=== PATIENT | female | born 2005 | race Asian ===

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

== ENCOUNTER 2023-07-11 09:41 | Outpatient (REF) | payer BC, SELFPAY ==
[2023-07-11 09:58] LABS: MANUAL DIFF FLAG NO
[2023-07-11 10:15] LABS: Basophils Percent Auto 0.6 % (0-2); Eosinophils Percent Auto 0.5 % (0-4); Hemoglobin 12.9 g/dl (12.0-16.0); Imm Gran Abs Auto 0.02 X10*3/uL (0.00-0.03); Imm Gran Pct Auto 0.3 % (0.0-0.4); Lymphocytes Absolute Auto 1.8 X10*3/uL (1.2-4.9); Lymphocytes Percent Auto 28.3 % (20-40); Mean Corpuscular HGB Conc 33.1 g/dl (31.0-35.0); Mean Corpuscular Hemoglobin 31.1 pg (27.0-33.0); Mean Platelet Volume 10.4 fL (9.4-12.3); Monocytes Absolute Auto 0.3 X10*3/uL (0.1-1.2); Monocytes Percent Auto 5.4 % (2-11); Neutrophils Absolute Auto 4.1 x10*3/uL (2.0-8.3); Neutrophils Percent Auto 64.9 % (45-73); Platelet Count 257 X10*3/uL (160-400); Red Blood Count 4.15 X10*6/uL (4.20-5.50); Red Cell Distribution Width 12.4 % (11.0-16.0); White Blood Count 6.3 X10*3/uL (4.8-10.8)
[2023-07-11 10:52] LABS: Alanine Aminotransferase 9 U/L (0-31); Albumin Level 4.5 g/dL (3.5-5.0); Alkaline Phosphatase 52 U/L (39-117); Aspartate Amino Transferase 14 U/L (5-31); Bilirubin Direct 0.3 mg/dL (0.0-0.5); Bilirubin Total 0.7 mg/dL (0.0-1.0); Total Protein 7.8 g/dL (6.5-8.0)
[2023-07-11 11:11] LABS: Free T4 (Free Thyroxine) 0.91 ng/dL (0.71-1.85); Thyroid Stimulating Hormone 1.21 uIU/mL (0.32-4.0)
[2023-07-12 06:23] LABS: Triiodothyronine T3 Free 3.1 pg/mL (3.0-4.7)
== END 2023-07-11 09:42 | disposition home or self-care (01) ==
LOC: HO.LAB 09:41
PROVIDERS: Visit Provider Internal Medicine Endocrinology, Diabetes & Metabolism
DX: E05.90 Thyrotoxicosis, unspecified without thyrotoxic crisis or storm (principal)
CPT/HCPCS: 36415; 80076; 84439; 84443; 84481; 85025

== ENCOUNTER 2023-07-13 10:13 | Outpatient (AMB) | payer BC, SELFPAY ==
--- NOTE | 2023-07-13 10:16 | MHC.OFFVIS ---
Intake Vital Signs 07/13/23 10:18 Height 5 ft 2.99 in Weight 129 lb 13.636 oz BMI 23.0 BP 98/64 Blood Pressure Location Lt brachial Position Sitting Pulse 79 Pulse Source Pulse Oximeter Intake Visit Reasons: f/u hyperthyroidism-lvm Intake Note: Patient present today for Hyperthyroidism follow up visit. Senior [employer] Required: No Accompanied by: Self / Same As Patient Allergies No Known Allergies Allergy (Verified 07/13/23 10:22) HPI HPI Comments History of Present Illness Details 16 YO F with PMHx reported Grave's DX who is seen in consultation for hyperthyroidism at the request of PCP. Was initially diagnosed with Graves disease and hyperthyroidism per patient in [place]. Apparently, patient took methimazole but is not clear about dose. Took methimazole for 3 mos. Stopped 1 mo ago . Currently on 15 mg of methimazole per day Currently denies any dysphagia or hoarseness of voice. Denies sensation of swelling in the neck or difficulty breathing while lying flat. [Denies] any tenderness in the neck. Denies any palpitations, tremors, weight loss, frequent bowel movements. Denies any ocular complaints, blurred or double vision. Denies hair loss, +dry skin, + heaintolerance, -weight gain, -confusion. Denies any history of head or neck irradiation. Denies any family history of thyroid cancer but family hx of thyroid dx in mother and grandmother use of biotin : No Thyroid US:: Labs: Currently off Methimazole since 09/2022 [facility] Medical History (Updated 04/01/22 @ 15:39 by López Conrad MD) Hyperthyroidism Surgical History (Updated 07/06/22 @ 13:09 by PAUL Farris) Hx of eye surgery Family History Father No known health problems Mother Thyroid condition Maternal Grandmother Thyroid condition Social History (Updated 07/06/22 @ 13:10 by PAUL Farris) Household Members: Other Household Members Other:: Roomate/student at [employer] Alcohol intake: never Patient Tobacco Use Status: Never used Tobacco Physical Exam Vital Signs: Last Vital Signs Pulse 79 07/13/23 10:18 BP 98/64 07/13/23 10:18 BMI result Body Mass Index 23.0 HEENT reveals absence of lid lag , stare or proptosis or eyebrow loss. Thyroid gland is enlarged in size measure 25 gms . No nodules or tenderness palpated. There is no cervical adenopathy palpated. Lungs CTA. Heart S1, S2 Reg R/R -M/R/G. Abdominal exam benign. Skin exam reveals absence of dryness or thyroid dermopathy or vitiligo. Nail exam reveals absence of thyroid acropachy or oncholysis. Neurologic exam reveals 2+ reflexes . Muscle Strength is 5/5 proximally. There are no tremors in upper extremities. Assessment & Plan Assessment & Plan (1) Hyperthyroidism: Code(s): E05.90 - Thyrotoxicosis, unspecified without thyrotoxic crisis or storm Plan: This is a 16-year-old [place] female with a history of hyperthyroidism secondary to Graves disease. She appears to be clinically and biochemically euthyroid off methimazole suggesting patient is in remission Plan is to continue off the methimazole. Patient returned to the care of her primary care provider and returned back to endocrinology as needed. Perhaps, TSH can be checked every 6 months to 1 year's time as patient does have positive antibodies for Graves and is at risk for recurrence. I also told her to report any symptoms of hyperthyroidism to her primary care provider so that thyroid function studies could be checked to ensure the patient is still in remission Coding Level of Care Code Est Pt Level 3 (85776) Diagnoses Hyperthyroidism E05.90
[2023-07-13 10:18] VITALS: BP 98/64; PULSE 79; BMI 23.0
== END 2023-07-13 10:29 | disposition home or self-care (01) ==
PROVIDERS: PCP Nurse Practitioner Family; Visit Provider Internal Medicine Endocrinology, Diabetes & Metabolism
DX: E05.90 Thyrotoxicosis, unspecified without thyrotoxic crisis or storm (principal)
CPT/HCPCS: 99213

== ENCOUNTER → 2023-07-13 10:13 | Outpatient (BNVA) | payer BC, SELFPAY | PROVIDERS: PCP Nurse Practitioner Family; Visit Provider Internal Medicine Endocrinology, Diabetes & Metabolism ==